=== PATIENT | male | born 1960 | race Caucasian/White ===

== ENCOUNTER 2017-07-17 09:38 | Emergency (ER) | payer OTHER ==
[~2017-07-17] VITALS: Ht 180.3 cm; Wt 68.2 kg
[~2017-07-17 09:38] MED LIST: MTH/1CAP7 PO; POTA15TA9 PO; TAMS0.4C98 PO
[2017-07-17 09:48] VITALS: BP 156/86; PULSE 67; RESP 16; O2SAT 98
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
[2017-07-17 10:31] LABS: BASOPHILS % (AUTO) 1.8 % (0-3); EOSINOPHILS % (AUTO) 1.1 % (0-5); MONOCYTES % (AUTO) 12.3 % (4-12); Mean Corpuscular Hemoglobin 36.4 pg (27.0-35.0); Mean Corpuscular Volume 106.5 fL (81-100); NEUTROPHILS % (AUTO) 62.6 % (40-74); Platelet Count 154 bil/L (150-400)
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
[2017-07-17 13:56] VITALS: BP 150/91; PULSE 74; RESP 20; O2SAT 98
== END 2017-07-17 13:56 | disposition home or self-care (01) ==
LOC: SED 09:38
DX: F43.0 Acute stress reaction (principal); F17.200 Nicotine dependence, unspecified, uncomplicated; F12.10 Cannabis abuse, uncomplicated; F10.10 Alcohol abuse, uncomplicated; Z87.440 Personal history of urinary (tract) infections; Z87.442 Personal history of urinary calculi
CPT/HCPCS: 36415; 70450; 80053; 82075; 82550; 84443; 85025; 99284; G0480